=== PATIENT | female | born 1940 | race Caucasian/White ===

== ENCOUNTER 2021-11-09 09:18 | Day surgery (SDC) | payer MEDICARE, OTHER ==
[2021-11-04 12:54] LABS: BASOPHILS % (AUTO) 0.5 % (0-1); EOSINOPHILS # (AUTO) 0.5 X10'3 (0-0.9); EOSINOPHILS % (AUTO) 5.6 % (0-6); HEMATOCRIT 29.2 % (35.0-45.0); LYMPHOCYTES # (AUTO) 1.6 X10'3 (1.1-4.8); LYMPHOCYTES % (AUTO) 19.4 % (21-51); MEAN CORPUSCULAR HEMOGLOBIN 30.1 PG (27.0-31.0); MEAN CORPUSCULAR HGB CONC 34.3 g/dL (33.0-36.5); MEAN CORPUSCULAR VOLUME 87.7 FL (78-98); MEAN PLATELET VOLUME 7.9 FL (7.4-10.4); MONOCYTES # (AUTO) 0.8 X10'3 (0-0.9); MONOCYTES % (AUTO) 9.6 % (2-12); NEUTROPHILS # (AUTO) 5.3 X10'3 (1.8-7.7); NEUTROPHILS % (AUTO) 64.9 % (42-75); PLATELET COUNT 259 X10'3 (140-440); RED BLOOD COUNT 3.33 X10'6 (4.20-5.60); RED CELL DISTRIBUTION WIDTH 14.4 % (11.5-14.5); WHITE BLOOD COUNT 8.1 X10'3 (4.5-11.0)
[2021-11-04 12:58] LABS: APTT 26 SECONDS (22-32)
[2021-11-04 13:00] LABS: ALANINE AMINOTRANSFERASE 15 U/L (12-78); ALBUMIN 3.5 G/DL (3.4-5.0); ALBUMIN/GLOBULIN RATIO 0.8 (1.1-1.5); ALKALINE PHOSPHATASE 74 IU/L (46-116); ANION GAP 11 (8-16); ASPARTATE AMINO TRANSFERASE 21 U/L (10-37); BILIRUBIN,TOTAL 0.3 MG/DL (0.1-1.0); BLOOD UREA NITROGEN 43 MG/DL (7-18); BUN/CREATININE RATIO 22.5 (6.6-38.0); CALCIUM 9.1 MG/DL (8.5-10.1); CHLORIDE 106 MMOL/L (99-107); CREATININE 1.91 MG/DL (0.40-0.90); GLUCOSE 110 MG/DL (70-104); POTASSIUM 3.1 MMOL/L (3.5-5.1); SODIUM 141 MMOL/L (135-145); TOTAL CARBON DIOXIDE 24.4 MMOL/L (24-32); TOTAL PROTEIN 7.7 G/DL (6.4-8.2); eGFR 25 ML/MIN
[2021-11-09] VITALS (13 sets, daily range): BP systolic 137–175; BP diastolic 57–89
[~2021-11-09] VITALS: Ht 152.4 cm; Wt 71.2 kg
[2021-11-09] MEDS ORDERED: diphenhydrAMINE 25mg capsule PO PRN (09:50)
[2021-11-09] MEDS ORDERED: nitroGLYCERIN 0.4mg SUBLingual tab SL PRN ×2 (09:50→13:25)
[2021-11-09] MEDS ORDERED: normal saline 1,000 ML IV SCH (09:50)
[2021-11-09] MEDS ORDERED: LORazepam 0.5 MG tablet PO PRN (09:50)
[2021-11-09] MEDS ORDERED: BENA20TA83 (10:13)
[2021-11-09] MEDS ORDERED: CARV6.2555 PO (10:13)
[2021-11-09] MEDS ORDERED: HYDR25TA5 PO (10:13)
[2021-11-09] MEDS ORDERED: BENA20TA82 PO (10:14)
[2021-11-09] MEDS ORDERED: CHOL200074 PO (10:14)
[2021-11-09] MEDS ORDERED: MAG PO (10:16)
[2021-11-09] MEDS ORDERED: CALCIUM PO (10:16)
[2021-11-09] MEDS ORDERED: ZINC PO (10:16)
[2021-11-09 10:24] LABS: ALBUMIN 3.5 G/DL (3.4-5.0); ANION GAP 12 (8-16); BLOOD UREA NITROGEN 44 MG/DL (7-18); CALCIUM 9.1 MG/DL (8.5-10.1); CHLORIDE 102 MMOL/L (99-107); CREATININE 1.69 MG/DL (0.40-0.90); GLUCOSE 93 MG/DL (70-104); POTASSIUM 3.6 MMOL/L (3.5-5.1); SODIUM 139 MMOL/L (135-145); TOTAL CARBON DIOXIDE 24.9 MMOL/L (24-32); eGFR 29 ML/MIN
[2021-11-09] MEDS ORDERED: midazolam 1 mg/ML 2ml injection ONE (11:06)
[2021-11-09] MEDS ORDERED: fentaNYL/PF 50MCG/1 ML 2ML syringe ONE (11:07)
[2021-11-09] MEDS ORDERED: iohexol 350MG/ML 100ml bottle IV ONE (11:07)
[2021-11-09] MEDS ORDERED: LIDOcaine 1% 30ml preserv. free vial ONE (11:07)
[2021-11-09] MEDS ORDERED: hydrALAZINE 20mg/ml inj. IV ONE (12:38)
[2021-11-09] MEDS ORDERED: ondansetron/PF 4mg/2ml inj IV PRN (13:20)
[2021-11-09] MEDS ORDERED: normal saline 1000ml 1,000 ML IV SCH (13:20)
[2021-11-09] MEDS ORDERED: HYDROcodone/acetaminophen 10/325mg tab PO PRN (13:25)
[2021-11-09] MEDS ORDERED: OXAZEpam 15mg capsule PO PRN (13:25)
[2021-11-09] MEDS ORDERED: proCHLORperazine 10 MG/2 ml inj IV PRN (13:25)
[2021-11-09] MEDS ORDERED: HYDROcodone/acetaminophen 5mg/325mg tablet PO PRN (13:25)
--- NOTE | 2021-11-09 13:30 | NUR ---
Patient experiencing urinary urgency s/p angiogram with right femoral access. Martinez catheter placed per post-cath orders.
== END 2021-11-09 19:00 | disposition home or self-care (01) ==
LOC: SSTAY O 09:18
PROVIDERS: ATTEND Internal Medicine Cardiovascular Disease
DX: R07.89 Other chest pain (principal); I25.10 Atherosclerotic heart disease of native coronary artery without angina pectoris; I07.1 Rheumatic tricuspid insufficiency; I10 Essential (primary) hypertension; E78.5 Hyperlipidemia, unspecified; Z79.899 Other long term (current) drug therapy
CPT/HCPCS: 36415; 71046; 80048; 80053; 85025; 85610; 85730; 93458; 99152; C1760; C1769; J0360; J1644; J2250; J3010; J3490; J7030; Q0163; Q9967; A4314; A4620; A6258; A6402; A6449

== ENCOUNTER 2022-01-26 08:57 | Inpatient (IN) | payer MEDICARE, OTHER ==
[2022-01-20 10:37] LABS: BASOPHILS % (AUTO) 0.5 % (0-1); EOSINOPHILS # (AUTO) 0.2 X10'3 (0-0.9); EOSINOPHILS % (AUTO) 2.7 % (0-6); LYMPHOCYTES # (AUTO) 1.5 X10'3 (1.1-4.8); LYMPHOCYTES % (AUTO) 16.5 % (21-51); MEAN CORPUSCULAR HGB CONC 34.7 g/dL (33.0-36.5); MEAN CORPUSCULAR VOLUME 86.6 FL (78-98); MONOCYTES % (AUTO) 10.4 % (2-12); NEUTROPHILS # (AUTO) 6.4 X10'3 (1.8-7.7); NEUTROPHILS % (AUTO) 69.9 % (42-75); PRE OP HEMATOCRIT 26.9 % (35.0-45.0); PRE OP PLATELET COUNT 328 X10'3 (140-440); RED BLOOD COUNT 3.11 X10'6 (4.20-5.60); RED CELL DISTRIBUTION WIDTH 14.4 % (11.5-14.5)
[2022-01-20 10:44] LABS: PRE OP HEMOGLOBIN 9.3 g/dL (12.0-16.0)
[2022-01-20 10:47] LABS: ALBUMIN 3.3 G/DL (3.4-5.0); ALBUMIN/GLOBULIN RATIO 0.7 (1.1-1.5); ALKALINE PHOSPHATASE 73 IU/L (46-116); BLOOD UREA NITROGEN 39 MG/DL (7-18); BUN/CREATININE RATIO 20.1 (6.6-38.0); CALCIUM 9.7 MG/DL (8.5-10.1); CHLORIDE 103 MMOL/L (99-107); CREATININE 1.94 MG/DL (0.40-0.90); PRE OP ALT 16 U/L (30-65); PRE OP ANION GAP 12 (8-16); PRE OP AST 16 U/L (10-37); PRE OP BILIRUB, TOTAL 0.3 MG/DL (0.0-1.0); PRE OP GLUCOSE 96 MG/DL (70-104); PRE OP SODIUM 144 MMOL/L (135-145); TOTAL CARBON DIOXIDE 28.9 MMOL/L (24-32); TOTAL PROTEIN 8.1 G/DL (6.4-8.2); eGFR 25 ML/MIN
[2022-01-20 11:02] LABS: PRE OP POTASSIUM 3.2 MMOL/L (3.4-5.1)
[2022-01-25 18:15] VITALS: BP 176/84
[2022-01-26] VITALS (24 sets, daily range): BP systolic 139–200; BP diastolic 68–115
[~2022-01-26] VITALS: Ht 154.9 cm; Wt 67.0 kg
[~2022-01-26 08:57] MED LIST: ARTHRITIS CREAM TD; ASPI-1071 PO; BENA20TA82 PO; CALCIUM PO; CARV6.2555 PO; CHOL200074 PO; DOCUMENT DATE & TIME OF BETA-BLOCKER PO ONE; HYDR25TA5 PO; IBUP-1985 PO; LIDOCAINE OINTMENT TD; MAG PO; ZINC PO; ceFAZolin inj. 2,000 MG in dextrose 5%-water 100 ML IV ONE; famotidine 20mg tablet PO ONE; ringers solution, lacted 1,000 ML IV SCH; tranexamic acid 650mg tablet PO ONE; vancomycin/NS 1 GM in NS 250 ML IV ONE
[2022-01-26 10:24] LABS: ISTAT CREATININE 1.8 mg/dL (0.6-1.1); ISTAT HGB 9.2 g/dl (12.0-16.0); ISTAT IONIZED CALCIUM 1.15 mmol/L (1.03-1.32); ISTAT K 3.5 mmol/L (3.5-5.1); POC BUN/CREATININE RATIO 22.2 (6.6-38.0)
[2022-01-26] MEDS ORDERED: ROPIVAcaine 0.5% (5mg/ml) 30ml vial ONE (12:30)
[2022-01-26] MEDS ORDERED: ketorolac trometh. 30mg/ml inj. ONE (12:30)
[2022-01-26] MEDS ORDERED: fentaNYL/PF 50MCG/1 ML 2ML syringe ONE (12:49)
[2022-01-26] MEDS ORDERED: MIDAZolam 1 MG/ML 5ML VIAL ONE (12:50)
[2022-01-26] MEDS ORDERED: sevoflurane 250ml liquid IH ONE (13:02)
[2022-01-26] MEDS ORDERED: diphenhydrAMINE 25mg capsule PO PRN ×2 (13:45)
[2022-01-26] MEDS ORDERED: HYDROmorphone 1 mg/ml syringe IV PRN (13:45)
[2022-01-26] MEDS ORDERED: oxyCODONE IR 5mg (immed. release) tablet PO PRN ×2 (13:45)
[2022-01-26] MEDS ORDERED: ondansetron/PF 4mg/2ml inj IV PRN ×2 (13:45→14:15)
[2022-01-26] MEDS ORDERED: acetaminophen 325mg tablet PO PRN (13:45)
[2022-01-26] MEDS ORDERED: magnesium hydroxide 30ml (MOM) UD suspension PO PRN (13:45)
[2022-01-26] MEDS ORDERED: ARTHRITIS TD SCH (13:45)
[2022-01-26] MEDS ORDERED: naloxone 0.4 mg/ml inj IV PRN (13:45)
[2022-01-26] MEDS ORDERED: non-formulary drug (Ibuprofen 200 MG) PO PRN (13:45)
[2022-01-26] MEDS ORDERED: bisacodyl 10mg suppository rectal RC PRN (13:45)
[2022-01-26] MEDS ORDERED: HYDROcodone/acetaminophen 10/325mg tab PO PRN ×2 (13:45)
[2022-01-26] MEDS ORDERED: HYDROmorphone inj. 0.5 MG/0.5 ML DISP.SYRIN IV PRN (13:45)
[2022-01-26] MEDS: acetaminophen 325mg tablet PO SCH ×2 (14:00→20:07)
[2022-01-26] MEDS ORDERED: ROPIVAcaine 0.2%/PF PUMP/bolus 545 ML INTERSCALE SCH (14:15)
[2022-01-26] MEDS ORDERED: proCHLORperazine 10 MG/2 ml inj IV PRN (14:15)
[2022-01-26] MEDS ORDERED: meperidine/PF 25mg/ml syringe IV PRN ×3 (14:15)
[2022-01-26] MEDS ORDERED: ringers solution, lacted 1,000 ML IV SCH (14:15)
[2022-01-26] MEDS ORDERED: ROPIVAcaine 0.2% (10 MG/5 ML) BOLUS INJECTION INTERSCALE PRN (14:15)
[2022-01-26] MEDS ORDERED: morphine 4 MG/ML inj SYRINge IV PRN (14:15)
[2022-01-26] MEDS ORDERED: morphine 2 MG/ML inj. syringe IV PRN (14:15)
[2022-01-26] MEDS ORDERED: dexamethasone sod phosphate 4mg/ml inj. ONE (15:10)
[2022-01-26] MEDS ORDERED: propofol inj 20 ML IV ONE (15:11)
[2022-01-26] MEDS ORDERED: ondansetron/PF 4mg/2ml inj ONE (15:11)
[2022-01-26] MEDS: labetalol 20mg/4ml (5mg/ml) syringe IV PRN ×2 (16:42→16:56)
[2022-01-26] MEDS: hydrALAZINE 20mg/ml inj. IV PRN ×2 (17:21→17:38)
--- NOTE | 2022-01-26 17:48 | NUR ---
Report called to receiving nurseRUBY. Transferred via BED. 3 Belongings BAGS SENT WITH PT ALONG WITH DAUGHTERS. SBP ELEVATED; 1ST AND 2ND MEDICATIONS GIVEN AND RETURNED TO WITHIN NORMAL LIMITS. FLOOR NURSE OKAY WITH PT TRANSFERRING. PT DENIES PAIN OR DISCOMFORT. ON ROOM AIR. . Special Issues communicated to receiving nurse. Addendum: 01/26/22 at 1756 by Brooke Sanchez RN Amended: Links added.
--- NOTE | 2022-01-26 18:37 | NUR ---
Problems reprioritized. Patient report given, questions answered & plan of care reviewed with Niya GARCIA.
[2022-01-26] MEDS ORDERED: vancomycin/NS 1 GM ADD-VANTAGE 250 ML IV SCH (20:00)
[2022-01-26] MEDS: LIDOCAINE TP SCH (20:00)
[2022-01-26] MEDS: lisinopril 20mg tablet PO SCH (20:07)
--- NOTE | 2022-01-26 20:08 | NUR ---
Joy daughter [phone]
[2022-01-26] MEDS: potassium cl 20mEq in 1/2 NS 1,000 ML IV SCH ×2 (20:09→21:45)
[2022-01-26] MEDS: ceFAZolin/D5W- 1GM premix 50 ML IV SCH (20:30)
[2022-01-26] MEDS ORDERED: sennosides 8.6mg tablet PO SCH (21:00)
[2022-01-27 02:00] VITALS: BP 120/56
[2022-01-27] MEDS: acetaminophen 325mg tablet PO SCH ×2 (03:55→07:17)
[2022-01-27] MEDS: ceFAZolin/D5W- 1GM premix 50 ML IV SCH (03:55)
[2022-01-27] MEDS: potassium cl 20mEq in 1/2 NS 1,000 ML IV SCH (05:45)
[2022-01-27 06:00] VITALS: BP 138/63
[2022-01-27 06:46] LABS: ANION GAP 10 (8-16); CHLORIDE 105 MMOL/L (99-107); POTASSIUM 3.3 MMOL/L (3.5-5.1); SODIUM 139 MMOL/L (135-145); TOTAL CARBON DIOXIDE 24.5 MMOL/L (24-32)
--- NOTE | 2022-01-27 06:49 | NUR ---
reported to days. noted pt anticipates discharge home today with daughter to stay with her. daughter will come this am to hear from PT before patient is discharged. pain controlled.
[2022-01-27] MEDS: lisinopril 20mg tablet PO SCH (07:16)
[2022-01-27] MEDS: LIDOCAINE TP SCH (07:19)
[2022-01-27] MEDS ORDERED: HYDROchlorothiazide 25mg tablet PO SCH (08:00)
[2022-01-27] MEDS ORDERED: CALCIUM PO SCH (08:00)
[2022-01-27] MEDS ORDERED: aspirin 81mg, enteric-coated 1 TAB TABLET.DR PO SCH (08:00)
[2022-01-27] MEDS ORDERED: carvedilol 6.25mg tablet PO SCH (08:00)
[2022-01-27] MEDS ORDERED: ZINC PO SCH (08:00)
[2022-01-27] MEDS ORDERED: cholecalciferol (vitamin D3) 1,000 unit (25mcg) tablet PO SCH (08:00)
[2022-01-27] MEDS ORDERED: MAG PO SCH (08:00)
[2022-01-27 08:15] LABS: BASOPHILS % (AUTO) 0.2 % (0-1); EOSINOPHILS % (AUTO) 0 % (0-6); HEMATOCRIT 25.9 % (35.0-45.0); LYMPHOCYTES # (AUTO) 1.3 X10'3 (1.1-4.8); LYMPHOCYTES % (AUTO) 10.4 % (21-51); MEAN CORPUSCULAR HEMOGLOBIN 30.4 PG (27.0-31.0); MEAN CORPUSCULAR HGB CONC 34.7 g/dL (33.0-36.5); MEAN CORPUSCULAR VOLUME 87.4 FL (78-98); MEAN PLATELET VOLUME 7.1 FL (7.4-10.4); MONOCYTES # (AUTO) 1.2 X10'3 (0-0.9); MONOCYTES % (AUTO) 9.8 % (2-12); NEUTROPHILS # (AUTO) 9.7 X10'3 (1.8-7.7); NEUTROPHILS % (AUTO) 79.6 % (42-75); PLATELET COUNT 358 X10'3 (140-440); RED BLOOD COUNT 2.97 X10'6 (4.20-5.60); RED CELL DISTRIBUTION WIDTH 14.3 % (11.5-14.5); WHITE BLOOD COUNT 12.2 X10'3 (4.5-11.0)
[2022-01-27] MEDS ORDERED: aspirin 325mg tablet PO SCH (08:30)
[2022-01-27 10:00] VITALS: BP 136/44
--- NOTE | 2022-01-27 11:19 | NUR ---
pt discharged in stable condition to home with daughter. iv removed tip intact no complications. Pt educated on incision care/ post op follow up. all questions answered. belongings sent home with pt.
--- NOTE | 2022-01-27 12:32 | NUR ---
Joint surgery consult: Pt s/p L shoulder surgery this admit per EMR. Pt discharged prior to RD visit; written high protein diet ed w/ RD contact information mailed to pt home address provided in EMR. Addendum: 01/27/22 at [address] Amended: Links added.
[2022-01-27] MEDS ORDERED: celeCOXIB 100mg capsule PO SCH (20:00)
[2022-01-28] MEDS ORDERED: acetaminophen 325mg tablet PO PRN (13:45)
== END 2022-01-27 11:00 | disposition home or self-care (01) | DRG 483 ==
LOC: PAS 08:57 → PAS IN 13:47 → ORTHO 4S 18:00
PROVIDERS: ADMIT Orthopaedic Surgery; ATTEND Orthopaedic Surgery
PROC: 0LS40ZZ Reposition Left Upper Arm Tendon, Open Approach (ICD-10-PCS; 2022-01-26)
PROC: 3E0T3BZ Introduction of Anesthetic Agent into Peripheral Nerves and Plexi, Percutaneous Approach (ICD-10-PCS; 2022-01-26)
PROC: 0RRK00Z Replacement of Left Shoulder Joint with Reverse Ball and Socket Synthetic Substitute, Open Approach (ICD-10-PCS; principal; 2022-01-26 13:02)
DX: M19.012 Primary osteoarthritis, left shoulder (principal); M75.112 Incomplete rotator cuff tear or rupture of left shoulder, not specified as traumatic; M65.812 Other synovitis and tenosynovitis, left shoulder; M75.22 Bicipital tendinitis, left shoulder
CPT/HCPCS: 36415; 80047; 80051; 80053; 82948; 85025; 87081; 87811; 97110; 97161; 97530; A4215; A4565; A4618; A7000; C1776; G0378; J0360; J0690; J1100; J1885; J2250; J2405; J2704; J2795; J3010; J3370; J3490; J7060; J7120